=== PATIENT | male | born 1945 | race Caucasian/White ===

== ENCOUNTER 2020-03-31 20:00 | Emergency (ER) | payer OTHER, MEDICAID ==
[~2020-03-31] VITALS: Ht 165.1 cm; Wt 64.9 kg
[2020-03-31 21:43] VITALS: BP 148/58
== END 2020-03-31 21:43 | disposition home or self-care (01) ==
LOC: ED 20:00
DX: R33.9 Retention of urine, unspecified (principal); R10.30 Lower abdominal pain, unspecified